=== PATIENT | female | born 2005 | race Caucasian/White ===

== ENCOUNTER 2025-01-31 10:13 | Emergency (ER) | payer BC ==
[~2025-01-31] VITALS: Ht 160 cm; Wt 45.4 kg
[2025-01-31 10:56] LABS: PLATELET COUNT (AUTO) 150 K/uL (150-450); RED BLOOD CELL COUNT(AUTO) 4.21 MIL/uL (4.0-5.2); RED CELL DISTRIBUTION WIDTH 12.5 % (11.5-15.0); WHITE BLOOD COUNT (AUTO) 4.9 K/uL (4.3-11.0)
[2025-01-31] MEDS: IV NS 0.9% 1,000 ML BAG IV ONE (10:56)
[2025-01-31 11:19] LABS: CALCIUM, SERUM 8.8 mg/dL (8.5-10.1); CREATININE 0.8 mg/dL (0.6-1.3); SODIUM SERUM 138.0 mmol/L (136-145); UREA NITROGEN, BLOOD 15.0 mg/dL (7-18)
[2025-01-31 11:41] LABS: ASPARTATE AMINOTRANSFERASE 11.0 U/L (15-37); PREGNANCY TEST SERUM QUAN 0.0 mIU/mL (0-6); TOTAL PROTEIN, SERUM 7.4 g/dL (6.4-8.2)
[2025-01-31 12:05] VITALS: BP 106/61; TEMP 97.8; O2SAT 100
== END 2025-01-31 12:06 | disposition home or self-care (01) ==
LOC: ER 10:23
DX: R42 Dizziness and giddiness (principal); F41.9 Anxiety disorder, unspecified; R10.20 Pelvic and perineal pain unspecified side
CPT/HCPCS: 99284; 96360; 93005; 85025; 36415; 80053; 84702; J7030